=== PATIENT | female | born 1945 | race Caucasian/White ===

== ENCOUNTER 2018-04-13 11:06 | Emergency (ER) | payer OTHER, BC ==
[2018-04-13 11:23] VITALS: BP 170/99; PULSE 78; TEMP 97.3; BMI 25.0
--- NOTE | 2018-04-13 11:58 | PDOC ---
History of Present Illness - General Chief Complaint: Laceration Stated Complaint: HIT MY HEAD Time Seen by Provider: 04/13/18 11:08 Exam Limitations: No Limitations - History of Present Illness Initial Comments: 04/13/18 11:58 72y F hx of htn, MS, pernicious anemia, presents with a head injury. The patient states that she was reaching into a cabinet didn't see a large fire extinguisher that fell and hit her head. Patient denies any headache, nausea, vomiting, blurry vision, numbness, tingling, weakness, neck pain, back pain. The patient's last tetanus vaccination was last year. PMD in [place] not on any a/c Past History - Past Medical History Allergies/Adverse Reactions: Allergies Allergy/AdvReac Type Severity Reaction Status Date / Time morphine Allergy Verified 04/13/18 11:07 Home Medications: Ambulatory Orders Albuterol Sulfate Inhaler - [Ventolin Hfa Inhaler -] 1 puff IH ASDIR 04/13/18 Amlodipine Besylate [Norvasc -] 10 mg PO DAILY 04/13/18 Atenolol [Tenormin] 50 mg PO DAILY 04/13/18 Baclofen [Lioresal -] 10 mg PO TID 04/13/18 Dextroamphetamine/Amphetamine [Adderall 10 mg Tablet] 20 mg PO BID 04/13/18 Hydrochlorothiazide [Hctz -] 12.5 mg PO DAILY 04/13/18 Oxybutynin Chloride [Oxybutynin Chloride ER] 15 mg PO DAILY 04/13/18 Pregabalin [Lyrica] 150 mg PO ASDIR 04/13/18 Salmeterol/Fluticasone [Advair 100Mcg/50Mcg -] 1 inh PO BID 04/13/18 Sertraline HCl [Zoloft] 200 mg PO DAILY 04/13/18 Teriflunomide [Aubagio] 14 mg PO DAILY 04/13/18 Tizanidine HCl [Zanaflex] 8 mg PO HS 04/13/18 Tramadol HCl 100 mg PO HS 04/13/18 Asthma: Yes COPD: No HTN: Yes Other medical history: MS, - Suicide/Smoking/Psychosocial Hx Smoking History: Never smoked Information on smoking cessation initiated: No Hx Alcohol Use: No Drug/Substance Use Hx: No Substance Use Type: None Review of Systems - Review of Systems Able to Perform ROS?: Yes Comments:: 04/13/18 12:31 Constitutional - no reported Fever, Chills, HEENT: no reported vision changes, sore throat Respiratory: no reported cough, sob, hemoptysis Cardiac: no reported chest pain, palpitations, light headedness, leg swelling Abd/GI: no reported abd pain, nausea, vomiting, blood per rectum, melena, diarrhea : no reported dysuria, frequency, discharge Musculskelatal - no reported back pain, joint swelling skin - +laceration no reported bruising, erythema, rash neurological: no reported headache, numbness, focal weakness, tingling, ataxia, hematologic: no reported easy bruising, easy bleeding *Physical Exam - Vital Signs Last Vital Signs Temp Pulse Resp BP Pulse Ox 97.3 F L 78 18 170/99 98 04/13/18 11:07 04/13/18 11:07 04/13/18 11:07 04/13/18 11:07 04/13/18 11:07 - Physical Exam Comments: 04/13/18 12:31 GENERAL: The patient is awake, alert, and fully oriented, Nontoxic - in no acute distress. HEAD: Normocephalic, 3 cm laceration in the vertex of the scalp, no palpable bony tenderness or crepitus, slight oozing EYES: extraocular movements intact, sclera anicteric, conjunctiva clear. ENT: Normal voice, Moist mucous membranes. NECK: Normal range of motion, supple EXTREMITIES: Normal range of motion, no edema. No clubbing or cyanosis. No cords, erythema, or tenderness. NEUROLOGICAL: No facial assymetry, Normal speech, PSYCH: Normal mood, normal affect. SKIN: Warm, Dry, normal turgor, BACK: No midline tenderness to the cervical, thoracic or lumbar spine MSK: FROM of b/l shoulders, elbows, wrist. FROM of hips, knees, ankles - No signs of ecchymosis, erythema, or crepitus noted on palpation extremities, chest wall, clavicals, ribs, back. Procedures - Consent Consent obtained: Verbal - Laceration/Wound Repair Upper Head Wound Length: 2.6 to 5.0 cm Wound Explored: clean Wound's Depth, Shape: superficial Irrigated w/ Saline: Yes Anesthesia: 1% Lidocaine Amount of Anesthetic (ccs): 3 Wound Debrided: minimal Wound Repaired With: Shweta Number of Sutures: 3 Sterile Dressing Applied: Yes Medical Decision Making - Medical Decision Making 04/13/18 12:33 72-year-old presenting status post head injury 3cm laceration was repaired using 4 shweta without complications We'll discharge with supportive management return precautions were discussed including signs of infection I discussed the physical exam findings, ancillary test results and final diagnoses with the patient. I answered all of the patient's questions. The patient was satisfied with the care received and felt comfortable with the discharge plan and treatment plan. The patient will call their primary care physician within 24 hours to arrange follow-up and will return to the Emergency Department with any new, persistent or worsening symptoms. *DC/Admit/Observation/Transfer Diagnosis at time of Disposition: Laceration of scalp Qualifiers: Encounter type: initial encounter Qualified Code(s): S01.01XA - Laceration without foreign body of scalp, initial encounter - Discharge Dispostion Disposition: HOME Condition at time of disposition: Improved Decision to Admit order: No - Referrals - Patient Instructions Printed Discharge Instructions: DI for Laceration Repair Additional Instructions: Return to the emergency department immediately with ANY new, persistent or worsening symptoms including any redness, bleeding, purulent discharge, swelling or other concerns. Keep the area clean and dry for 48 hours. Afterwards he may clean gently with soap and water. Apply bacitracin twice a day. Keep the area away from the sun for the next 9 months, please use sunscreen and wear a hat if you need to be in the sun to improve appearance of the scar. Return in 10 days for staple removal. You MUST call and follow up with your doctor tomorrow for further evaluation of your symptoms. Results were discussed with you. Please make sure your doctor reviews the results of your emergency evaluation. Print Language: JORDANIAN - Post Discharge Activity
[2018-04-13] MEDS ORDERED: LIDO 2%/EPI 1:200000 PRESRVFRE (20 ML SDVIAL) ONE (12:09)
== END 2018-04-13 13:03 | disposition home or self-care (01) ==
LOC: FER 11:06
PROC: 0HQ1XZZ Repair Face Skin, External Approach (ICD-10-PCS; principal; 2018-04-13)
DX: S01.01XA Laceration without foreign body of scalp, initial encounter (principal)
CPT/HCPCS: 99282-25